=== PATIENT | male | born 1980 | race Two or more races ===

== ENCOUNTER 2018-04-17 19:20 | Emergency (ER) | payer SELFPAY ==
[~2018-04-17] VITALS: Ht 167.6 cm; Wt 64.0 kg
[2018-04-17 19:23] VITALS: BP 136/89
== END 2018-04-17 22:15 | disposition left against medical advice (07) ==
LOC: ER 19:20
DX: F10.129 Alcohol abuse with intoxication, unspecified (principal); R03.0 Elevated blood-pressure reading, without diagnosis of hypertension; F17.210 Nicotine dependence, cigarettes, uncomplicated; Y90.9 Presence of alcohol in blood, level not specified
CPT/HCPCS: 99283